=== PATIENT | female | born 2000 | race Caucasian/White ===

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

== ENCOUNTER 2020-07-04 16:38 | Emergency (ER) | payer OTHER, SELFPAY ==
[2020-07-04 16:47] VITALS: BP 115/62; PULSE 74; RESP 18; TEMP 36.8; O2SAT 100; BMI 19.5
[2020-07-04 17:58] LABS: RBC Urine None Seen (0-5/HPF)
[2020-07-04 17:59] LABS: Appearance Urine UA SL CLOUDY; Bilirubin Urine UA NEGATIVE (NEGATIVE); Color Urine UA YELLOW; Glucose Urine UA NEGATIVE (Negative); Ketones Urine UA NEGATIVE (NEGATIVE); Leukocyte Esterase Urine UA 1+ (NEGATIVE); Nitrite Urine UA NEGATIVE (Negative); Occult Blood Urine UA NEGATIVE (Negative); Protein Urine UA NEGATIVE (Negative); Urobilinogen Urine UA 0.2 E.U./dL (0.2)
[2020-07-04 18:09] LABS: Bacteria Urine Moderate (10-30); Culture Indicated Urine Specimen Cultured; Squamous Epithelial Cell Urine 0-1 /HPF (0-5/HPF); WBC Urine 30-100/HPF (0-5/HPF)
--- NOTE | 2020-07-04 18:14 | ED.FEMALEGU ---
HPI - Female Genitourinary General Chief complaint: Urogenital-Female Stated complaint: UTI, Getting Worse Time Seen by Provider: 07/04/20 18:05 Source: patient Mode of arrival: Ambulatory Limitations: no limitations History of Present Illness HPI Narrative: 19-year-old female nonsmoker with extensive history of frequent urinary tract infections presents with a chief complaint of about 1 month's worth of dysuria, frequency and urgency. [place] and put on some white pill as an antibiotic. She states that she did not take it as directed and took it sparingly. She now has subjective fever and complains of some back pain and nausea. She denies any vomiting. She is able to tolerate food and drink without terrible difficulty. She denies any vaginal bleeding or discharge. MD Complaint: dysuria and UTI Onset (ago): day(s) Severity: moderate Quality: Aching Duration: constant Exacerbating factors: urination and movement Urinary symptoms: Dysuria, Frequency and Urgency Patient : No Related Data Previous Rx's Medication Instructions Recorded fluconazole 150 mg PO Q3D #2 tab 10/07/19 ciprofloxacin HCl 500 mg PO BID #14 tab 07/04/20 fluconazole 150 mg PO Q3D #2 tab 07/04/20 Allergies Allergy/AdvReac Type Severity Reaction Status Date / Time chlorhexidine [CHLORHEXIDINE] Allergy Unknown RASH - Verified 07/04/20 16:47 SEVERITY NOT LISTED polyethylene glycol 3350 Allergy Unknown RASH-SEVERITY Verified 07/04/20 16:47 [From MIRALAX] NOT LISTED Sulfa (Sulfonamide Allergy Unknown RASH-SEVERTY Verified 07/04/20 16:47 Antibiotics) NOT LISTED [SULFA (SULFONAMIDE ANTIBIOTICS)] nitrofurantoin Allergy Verified 07/04/20 16:47 [From Macrobid] Review of Systems Constitutional Constitutional: Reports chills, Denies fatigue, Reports fever(s), Denies frequent falls, Denies lethargy and Denies weakness Eyes Eyes: Denies change in vision, Denies eye discharge, Denies irritation and Denies loss of vision ENT Ears, Nose, Mouth, and Throat: Denies change in voice, Denies dizziness, Denies neck pain, Denies sore throat and Denies throat swelling Cardiovascular Cardiovascular: Denies chest pain, Denies irregular heart rhythm, Denies lightheadedness, Denies palpitations, Denies dyspnea, Denies dyspnea on exertion and Denies orthopnea Respiratory Respiratory: Denies cough, Denies dyspnea, Denies dyspnea on exertion and Denies wheezing Gastrointestinal Gastrointestinal: Denies abdominal pain, Denies change in bowel habits, Denies diarrhea, Denies nausea and Denies vomiting Genitourinary Genitourinary: Reports dysuria, Reports dysuria and Reports urinary urgency Genitourinary: Reports dysuria, Reports dysuria and Reports urinary urgency Musculoskeletal Musculoskeletal: Denies neck pain and Denies numbness Integumentary/Breasts Skin/Breast: Denies pruritus, Denies erythema, Denies rash and Denies wounds Neurologic Neurologic: Denies behavioral changes, Denies confusion, Denies dizziness, Denies frequent falls, Denies loss of vision, Denies numbness and Denies weakness Psychiatric Psychiatric: Denies anxiety, Denies behavioral changes, Denies confusion, Denies depression, Denies homicidal ideation and Denies suicidal ideation Endocrine Endocrine: Denies fatigue, Denies flushing and Denies palpitations Hematologic/Lymphatic Hematologic/Lymphatic: Denies easy bruising Allergic/Immunologic Allergic/Immunologic: Denies urticaria, Denies throat swelling and Denies wheezing Patient History Substance Use Type: does not use Exam Narrative Exam Narrative: GENERAL 19 year old patient appears stated age. Well-nourished, well-developed patient, in mild distress. Mother at bedside with her HEAD: Atraumatic. Normocephalic. EYES: Pupils equal round and reactive. Extraocular motions intact. No scleral icterus. No injection or drainage. ENT: Nose without bleeding, purulent drainage. Throat without erythema, tonsillar hypertrophy or exudate. Airway patent. NECK: Trachea midline. Non tender CARDIOVASCULAR: Regular rate and rhythm without murmurs, gallops, or rubs. RESPIRATORY: Clear to auscultation. Breath sounds equal bilaterally. No wheezes, rales, or rhonchi. GASTROINTESTINAL: Abdomen soft, non-tender, nondistended. EXTREMITIES: No edema or joint tenderness. BACK: Nontender without deformity or crepitance. B/L CVA tenderness. NEURO: AOx3. SKIN: No rash or erythema of visible areas Initial Vital Signs Initial Vital Signs: Vital Signs Temperature 98.2 F 07/04/20 16:47 Pulse Rate 74 07/04/20 16:47 Respiratory Rate 18 07/04/20 16:47 Blood Pressure 115/62 07/04/20 16:47 Pulse Oximetry 100 07/04/20 16:47 Course Orders Ordered: ED Orders 07/04/20 17:45 Urinalysis and Microscopic Stat Urine Culture Stat Vital Signs Vital signs: Vital Signs - 8 hr 07/04/20 16:47 07/04/20 18:35 Temperature 98.2 F Pulse Rate 74 73 Respiratory Rate 18 19 Blood Pressure 115/62 105/61 Pulse Oximetry 100 99 MDM - Female Genitourinary Lab Data Labs: Lab Results 07/04/20 Range/Units 17:45 Urine Color Yellow Urine Appearance Sl cloudy Urine pH 7.0 (4.5-8.0) Ur Specific [place] 1.020 (1.000-1.035) Urine Protein Negative (Negative) Urine Glucose (UA) Negative (Negative) g/dL Urine Ketones Negative (NEGATIVE) Urine Occult Blood Negative (Negative) Urine Nitrate Negative (Negative) Urine Bilirubin Negative (NEGATIVE) Urine Urobilinogen 0.2 (0.2) E.U./dL Ur Leukocyte Esterase 1+ H (NEGATIVE) Urine RBC None seen (0-5/HPF) Urine WBC 30-100/hpf H (0-5/HPF) Ur Squamous Epith Cells 0-1 /hpf (0-5/HPF) Urine Bacteria Moderate (10-30) H (None) Ur Culture Indicated? Specimen cultured Point of Care Testing Test Results Negative Discharge Plan Departure Patient Disposition: Home Clinical Impression: Urinary tract infection Qualifiers: Urinary tract infection type: acute pyelonephritis Qualified Code(s): N10 - Acute pyelonephritis Discharge Date/Time: 07/04/20 18:36 Instructions: DI for Kidney Infection Activity Restrictions/Additional Instructions: *You have been diagnosed with [acute kidney infection (pyelonephritis)] *What to do: *Take medications as directed *Follow up with your primary care provider in 2-3 days, call for an appointment. Let them know you were seen in the Emergency Department and that we ask that you be seen in follow up *Return to ER if you should have any new, worsening or concerning symptoms Prescriptions: New fluconazole 150 mg tablet 150 mg PO Q3D Qty: 2 RF: 0 ciprofloxacin HCl 500 mg tablet 500 mg PO BID Qty: 14 RF: 0 No Action fluconazole 150 mg tablet 150 mg PO Q3D Qty: 2 RF: 0
[2020-07-04 18:35] VITALS: BP 105/61; PULSE 73; RESP 19; O2SAT 99
== END 2020-07-04 18:36 | disposition home or self-care (01) ==
PROVIDERS: Emergency Medicine; Emergency Provider Emergency Medicine
DX: N10 Acute pyelonephritis (principal); N39.0 Urinary tract infection, site not specified
CPT/HCPCS: 81001; 81025; 87077; 87086; 87186; 99282

== ENCOUNTER 2020-07-26 17:17 | Emergency (ER) | payer OTHER, SELFPAY ==
[2020-07-26 17:24] VITALS: BP 112/64; PULSE 109; RESP 20; TEMP 36.5; O2SAT 100
--- NOTE | 2020-07-26 17:45 | ED_ITS ---
HPI - Neck Pain/Injury <KARSTEN Mendoza - Last Filed: 07/26/20 18:55> General Chief Complaint: Neck Pain/Injury Stated Complaint: NECK INJURY Time Seen by Provider: 07/26/20 17:20 Source: patient and family Mode of arrival: Ambulatory Limitations: no limitations History of Present Illness HPI Narrative: This is a 20-year-old female, nonsmoker, who has no contributory medical history presents to ED with chief complain of right-sided sharp and burning neck discomfort for 2 days. She reports she woke up with this pain with decreased range of motion due to pain. Patient was seen by chiropractor yesterday and her neck diarrhea adjusted without much improvement. Patient reports had some tingling in her upper extremities the 1st night she had pain but this has resolved. Patient denies trauma or injury associated with this pain. Patient denies headache, vision change, weakness to upper extremities. She denies fever, chills, nausea or vomiting. She has used ice and heat pack on affected site and to occasional ibuprofen for pain. Patient thinks warm pack helps with discomfort. Patient denies similar pain or symptoms in the past. LMP 2 weeks ago which was normal for her. Related Data Previous Rx's Medication Instructions Recorded cyclobenzaprine 10 mg PO BID PRN #10 tab 07/26/20 lidocaine 1 patch TOP Q24H PRN #15 each 07/26/20 Allergies Allergy/AdvReac Type Severity Reaction Status Date / Time chlorhexidine [CHLORHEXIDINE] Allergy Unknown RASH - Verified 07/04/20 16:47 SEVERITY NOT LISTED polyethylene glycol 3350 Allergy Unknown RASH-SEVERITY Verified 07/04/20 16:47 [From MIRALAX] NOT LISTED Sulfa (Sulfonamide Allergy Unknown RASH-SEVERTY Verified 07/04/20 16:47 Antibiotics) NOT LISTED [SULFA (SULFONAMIDE ANTIBIOTICS)] nitrofurantoin Allergy Verified 07/04/20 16:47 [From Macrobid] Review of Systems <KARSTEN Mendoza - Last Filed: 07/26/20 18:55> Review of Systems Narrative: General: Denies fever, chills, fatigue, malaise, sweats. HEENT: Denies sinus pain, ear pain, sore throat, difficulty swallowing, dizziness. Respiratory: Denies dyspnea, cough, wheezing, hemoptysis, sputum. Cardiovascular: Denies chest pain, palpitations, orthopnea, edema. Gastrointestinal: Denies nausea, vomiting, abdominal pain, diarrhea, constipation, melena. : Denies dysuria, frequency, incontinence, hematuria, urinary retention. Musculoskeletal: See HPI Skin: Denies rash, skin lesions, or other. Neurologic: Denies weakness, headache, numbness, change in speech, confusion, seizures, incoordination. Psychiatric: No concerning psychosocial issues. 12-point review of systems is negative except for those stated above. Patient History <KARSTEN Mendoza - Last Filed: 07/26/20 18:55> Medical History No significant past medical history (Acute) Surgical History No pertinent past surgical history (Acute) Social History marital status: unmarried,single housing: house Smoking Status: Never smoker Smoking Status: Never smoker Substance Use Type: does not use Exam <KARSTEN Mendoza - Last Filed: 07/26/20 18:55> Narrative Exam Narrative: General appearance: well developed, well nourished, in no acute distress. Head: normocephalic, atraumatic, no scalp lesions, non-tender. ENT: Hearing grossly intact. Airway patent. Neck/Thyroid: neck supple, limited range of motion with rotation, flexion and extension of cervical spine. no visible masses or meningeal signs. No JVD, non- tender without lymphadenopathy. Skin: no suspicious rashes, lesions over visible areas on affected neck. Warm and dry and appropriate color for ethnicity. Heart: no clubbing, no cyanosis, no edema. Lungs: Breathing even and unlabored. No stridor. No accessory muscles used. Able to speak in full sentences. Chest: normal shape and expansion. Abdomen: non-obese, non-distended. Neurologic: alert and oriented. Cognitive exam, [employer] and PNS grossly intact on informal exam. Psych: good eye contact, normal affect. Initial Vital Signs Initial Vital Signs: Vital Signs Temperature 97.7 F 07/26/20 17:24 Pulse Rate 109 H 07/26/20 17:24 Respiratory Rate 20 07/26/20 17:24 Blood Pressure 112/64 07/26/20 17:24 Pulse Oximetry 100 07/26/20 17:24 Back/Spine/Pelvis Cervical Spine: normal cervical lordosis, cervical muscular tenderness (Right- sided), pain with cervical ROM, No scars present, No cervical spinal tenderness, No step off deformity and cervical ROM abnormal (In all range of motion with rotation >45 degree, flexion/extension) <Asa Freier DO - Last Filed: 07/26/20 18:55> Initial Vital Signs Initial Vital Signs: Vital Signs Temperature 97.7 F 07/26/20 17:24 Pulse Rate 109 H 07/26/20 17:24 Respiratory Rate 20 07/26/20 17:24 Blood Pressure 112/64 07/26/20 17:24 Pulse Oximetry 100 07/26/20 17:24 Scores <KARSTEN Mendoza - Last Filed: 07/26/20 18:55> GCS Estephania coma scale eye opening: Spontaneous Estephania coma scale verbal response: Orientated Estephania coma scale motor response: Obey commands Estephania coma scale total score: 15 Course <KARSTEN Mendoza - Last Filed: 07/26/20 18:55> Orders Ordered: Discontinued Medications Acetaminophen (Tylenol) 650 mg PO NOW ONE Stop: 07/26/20 17:32 Last Admin: 07/26/20 17:49 Dose: 650 mg Documented by: BETZY Cyclobenzaprine HCl (Flexeril) 10 mg PO NOW ONE Stop: 07/26/20 17:32 Last Admin: 07/26/20 17:48 Dose: 10 mg Documented by: BETZY Ibuprofen (Advil) 400 mg PO NOW ONE Stop: 07/26/20 17:32 Last Admin: 07/26/20 17:48 Dose: 400 mg Documented by: BETZY Lidocaine (Lidoderm) 1 each TOP NOW ONE Stop: 07/26/20 17:32 Last Admin: 07/26/20 17:47 Dose: 1 each Documented by: BETZY Reevaluation(s) Reevaluation #1: Patient reports discomfort still about the same after she received all for medications in ED. Time: 18:25 Vital Signs Vital signs: Vital Signs - 8 hr 07/26/20 17:24 07/26/20 18:37 Temperature 97.7 F Pulse Rate 109 H 77 Respiratory Rate 20 16 Blood Pressure 112/64 101/53 L Pulse Oximetry 100 99 <Asa Freire DO - Last Filed: 07/26/20 18:55> Orders Ordered: Discontinued Medications Acetaminophen (Tylenol) 650 mg PO NOW ONE Stop: 07/26/20 17:32 Last Admin: 07/26/20 17:49 Dose: 650 mg Documented by: BETZY Cyclobenzaprine HCl (Flexeril) 10 mg PO NOW ONE Stop: 07/26/20 17:32 Last Admin: 07/26/20 17:48 Dose: 10 mg Documented by: BETZY Ibuprofen (Advil) 400 mg PO NOW ONE Stop: 07/26/20 17:32 Last Admin: 07/26/20 17:48 Dose: 400 mg Documented by: BETZY Lidocaine (Lidoderm) 1 each TOP NOW ONE Stop: 07/26/20 17:32 Last Admin: 07/26/20 17:47 Dose: 1 each Documented by: BETZY Vital Signs Vital signs: Vital Signs - 8 hr 07/26/20 17:24 07/26/20 18:37 Temperature 97.7 F Pulse Rate 109 H 77 Respiratory Rate 20 16 Blood Pressure 112/64 101/53 L Pulse Oximetry 100 99 [facility] - Neck Pain/Injury <KARSTEN Mendoza - Last Filed: 07/26/20 18:55> Differential Diagnosis Differential diagnosis: Likely cervical radiculopathy, torticollis, strain of neck muscle and other (Shingles) Medical Records Attestation: I reviewed the patient's medical records. 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 Patient reports limited range of motion due to discomfort. Patient had temporarily tinglng on bilateral upper extremities which resolved the other night. Patient has intact sensation, pulses and strength bilaterally. No rashes, mass or lesions appreciated on the affected site of neck. Pain radiates to right side upper back with movements. No focal neurological deficit appreciated. Imaging test was done since this is nontraumatic discomfort and given patient's age. Patient was medicated with Tyelnol, Ibuprofen, Flexeril and Lidocaine patch with minimal improvement. The patient recommended the same regimen, follow-up with primary care physician there is no improvement. Return precautions were discussed with patient and work note provided 2 days. Patient and mother verbalized understanding and agreement with treatment plan. Discharge Plan Departure Patient Disposition: Home Clinical Impression: Cervicalgia Discharge Date/Time: 07/26/20 18:46 Instructions: DI for Neck Pain Activity Restrictions/Additional Instructions: You have been diagnosed with [right-sided neck pain with limited range of m otion.]. What to do: *Take your medications as directed. Please take [id number] Tylenol and or Motrin as needed for discomfort. Tylenol 650 up to 3 to 4 times a day as needed for pain. Ibuprofen 400-600 mg up to 3 to 4 times a day as needed for pain with food to decrease GI irritation. Lidocaine patch on affected area which stays on for 12 hours and off for 12 hours use it for pain as needed. Flexeril is muscle relaxant, you can use it as needed. This can cause drowsiness, please take precautions not to drive, drink alcohol, or operate heavy equipments. This medication have been transmitted to [facility] in [place]. *Follow up with your primary care provider in 2-3 days, call for an appointment. Let them know you were seen in the ED and that we asked you to be seen in [facility] [place]. *Return to ED if you have any new, worsening, or concerning symptoms, such as [worsening pain, weakness/tingling/numbness on extremities, rash on the neck, fever, chest pain, breathing difficulty, or any acute concerns]. Prescriptions: New cyclobenzaprine 10 mg tablet 10 mg PO BID PRN (Reason: muscle spasm) Qty: 10 RF: 0 lidocaine 5 % adhesive patch,medicated 1 patch TOP Q24H PRN (Reason: pain) Qty: 15 RF: 0 Referrals: [facility] [Outside] Stand Alone Forms: Work Release Note <Asa Freire, DO - Last Filed: 07/26/20 18:55> Cosign ED Attending Cosabbieature Attestation: Dr Freire Co-Sign Statement: I was available for consultation during this patient's emergency department visit. This chart is signed by myself for administrative purposes only. I did not have direct contact with this patient during this visit. They were seen independently by the APC.
[2020-07-26] MEDS: LIDOCAINE PATCH 1 EACH ADH..PATCH TOP (17:47)
[2020-07-26] MEDS: IBUPROFEN 400 MG TABLET PO (17:48)
[2020-07-26] MEDS: CYCLOBENZAPRINE 10 MG TABLET PO (17:48)
[2020-07-26] MEDS: ACETAMINOPHEN 325 MG TABLET 650 MG PO (17:49)
[2020-07-26 18:37] VITALS: BP 101/53; PULSE 77; RESP 16; O2SAT 99
== END 2020-07-26 18:46 | disposition home or self-care (01) ==
PROVIDERS: Emergency Provider Nurse Practitioner Family
DX: M54.2 Cervicalgia (principal)
CPT/HCPCS: 99283

== ENCOUNTER 2021-10-23 11:29 | Emergency (ER) | payer OTHER, SELFPAY ==
[2021-10-23 11:35] VITALS: BP 115/63; PULSE 94; RESP 13; TEMP 36.6; O2SAT 100; BMI 19.5
[2021-10-23 12:21] LABS: Bacteria Urine Many (>30); RBC Urine 0-1/HPF (0-5/HPF); Squamous Epithelial Cell Urine 1-5 /HPF (0-5/HPF); WBC Urine 30-100/HPF (0-5/HPF)
[2021-10-23 12:22] LABS: Culture Indicated Urine Specimen Cultured
[2021-10-23 12:40] VITALS: BP 123/68; PULSE 90; RESP 18; TEMP 36.7; O2SAT 100
--- NOTE | 2021-10-23 12:46 | ED.FEMALEGU ---
HPI - Female Genitourinary <FREDY Nix - Last Filed: 10/23/21 15:27> General Chief complaint: Urogenital-Female Stated complaint: UTI, Swollen lymphnode Time Seen by Provider: 10/23/21 12:37 Source: patient Mode of arrival: Ambulatory History of Present Illness HPI Narrative: The patient is a 21-year-old female nonsmoker with history of remote urinary tract infection who presents with a chief complaint of UTI symptoms since yesterday. She is allergic to sulfa antibiotics, states she gets itchy with Macrobid as well. She notes dysuria urgency and frequency as well as urinary odor starting yesterday. Denies any abnormal vaginal discharge. She denies any flank pain vomiting, diarrhea, nausea or concern about sexually transmitted infections. She also notes that she has 1 single early swollen lymph node on her neck that is being worked up, at an outside facility. She has imaging scheduled upcoming through [facility]. Related Data Previous Rx's Medication Instructions Recorded cyclobenzaprine 10 mg tablet 10 mg PO BID PRN #10 tab 07/26/20 lidocaine 5 % topical patch 1 patch TOP Q24H PRN #15 each 07/26/20 cephalexin 500 mg capsule 500 mg PO BID #14 cap 10/23/21 fluconazole 150 mg tablet 150 mg PO Q3D #2 tab 10/23/21 (Diflucan) Allergies Allergy/AdvReac Type Severity Reaction Status Date / Time chlorhexidine [CHLORHEXIDINE] Allergy Unknown RASH - Verified 10/23/21 11:38 SEVERITY NOT LISTED polyethylene glycol 3350 Allergy Unknown RASH-SEVERITY Verified 10/23/21 11:38 [From MIRALAX] NOT LISTED Sulfa (Sulfonamide Allergy Unknown RASH-SEVERTY Verified 10/23/21 11:38 Antibiotics) NOT LISTED [SULFA (SULFONAMIDE ANTIBIOTICS)] nitrofurantoin Allergy Verified 10/23/21 11:38 [From Macrobid] Review of Systems <FREDY Nix - Last Filed: 10/23/21 15:27> Review of Systems Narrative: GENERAL: Denies chills, fatigue, malaise, fever, sweats. HEENT: See HPI RESPIRATORY: Denies dyspnea, cough, wheezing, hemoptysis, sputum. CARDIOVASCULAR: Denies chest pain, palpitations, orthopnea, edema, GASTROINTESTINAL: Denies nausea, vomiting, abdominal pain, diarrhea, constipation, melena. : See HPI MUSCULOSKELETAL: denies weakness, joint pain, or bony pain SKIN: Denies rash, skin lesions, or other NEUROLOGIC: Denies weakness, headache, numbness, change in speech, confusion, seizures, incoordination. PSYCHIATRIC: No concerning psychosocial issues. 12 point review of systems is negative except for those stated above Patient History <FREDY Nix - Last Filed: 10/23/21 15:27> Medical History (Updated 10/23/21 @ 12:51 by FREDY Nix) No significant past medical history Surgical History No pertinent past surgical history alcohol intake frequency: holidays/special occasions only Substance Use Type: does not use Exam <FREDY Nix - Last Filed: 10/23/21 15:27> Narrative Exam Narrative: GENERAL: This is a well-nourished, well-developed patient, in no acute distress HEAD: Atraumatic. Normocephalic. No temporal or scalp tenderness. EYES: Pupils equal round and reactive. Extraocular motions intact. No scleral icterus. No injection or drainage. ENT: Nose without bleeding, purulent drainage or septal hematoma. Throat without erythema, tonsillar hypertrophy or exudate. Uvula midline. Airway patent. Bilateral TMs pearly marie. single slightly painful submandibular lymph node on left side, not larger than right, no overlying erythema. NECK: Trachea midline. No JVD or lymphadenopathy. Supple, nontender, no meningeal signs. CARDIOVASCULAR: Regular rate and rhythm RESPIRATORY: Clear to auscultation. Breath sounds equal bilaterally. No wheezes, rales, or rhonchi. GASTROINTESTINAL: Abdomen soft, non-tender, nondistended. No hepato-splenomegaly, or palpable masses. No guarding. EXTREMITIES: No clubbing, cyanosis, or edema. No joint tenderness, effusion, or edema noted. BACK: Nontender without deformity or crepitance. No CVA tenderness NEURO: AOx3. SKIN: No rash or erythema. Initial Vital Signs Initial Vital Signs: Vital Signs Temperature 97.8 F 10/23/21 11:35 Pulse Rate 94 H 10/23/21 11:35 Respiratory Rate 13 10/23/21 11:35 Blood Pressure 115/63 10/23/21 11:35 Pulse Oximetry 100 10/23/21 11:35 <Wilson Suggs MD - Last Filed: 10/29/21 12:16> Initial Vital Signs Initial Vital Signs: Vital Signs Temperature 97.8 F 10/23/21 11:35 Pulse Rate 94 H 10/23/21 11:35 Respiratory Rate 13 10/23/21 11:35 Blood Pressure 115/63 10/23/21 11:35 Pulse Oximetry 100 10/23/21 11:35 Course <FREDY Nix - Last Filed: 10/23/21 15:27> Orders Ordered: ED Orders 10/23/21 11:52 Urine Culture Stat Urine Microscopic Stat Vital Signs Vital signs: Vital Signs - 8 hr 10/23/21 11:35 10/23/21 12:40 Temperature 97.8 F 98.1 F Pulse Rate 94 H 90 Respiratory Rate 13 18 Blood Pressure 115/63 123/68 Pulse Oximetry 100 100 <Wilson Suggs MD - Last Filed: 10/29/21 12:16> Orders Ordered: ED Orders 10/23/21 11:52 Urine Culture Stat Urine Microscopic Stat Vital Signs Vital signs: Vital Signs - 8 hr 10/23/21 11:35 10/23/21 12:40 Temperature 97.8 F 98.1 F Pulse Rate 94 H 90 Respiratory Rate 13 18 Blood Pressure 115/63 123/68 Pulse Oximetry 100 100 MDM - Female Genitourinary <FREDY Nix - Last Filed: 10/23/21 15:27> Lab Data Labs: Lab Results 10/23/21 Range/Units 11:52 Urine RBC 0-1/hpf (0-5/HPF) Urine WBC 30-100/hpf H (0-5/HPF) Ur Squamous Epith Cells 1-5 /hpf (0-5/HPF) Urine Bacteria Many (>30) H (None) Ur Culture Indicated? Specimen cultured Point of Care Testing Test Results Negative Urine Dip Bedside Urine Glucose Negative Bedside Urine Bilirubin - Negative Bedside Urine Ketone - Negative Urine Specific [place] 1.030 Bedside Urine Occult Blood ++ Bedside Urine pH 6.0 Bedside Urine Protein + 30 Bedside Urine Urobilinogen - Negative Bedside Urine Nitrite + Positive Bedside Urine Leukocytes + 70 Esterase MDM Narrative Medical decision making narrative: The patient is a 21-year-old female who presents with dysuria urgency and frequency that started yesterday. Urine is concerning for UTI, with nitrate positive urine. However she does not have any signs of pyelonephritis, denies any flank pain, fever, appears well and nontoxic. She is allergic to Macrobid and to sulfa continue antibiotics, so will start her on Keflex at this point time. Discussed at length strict ER return precautions, urine culture is pending at this point time. She does have a slightly painful lymph node, that is isolated, however does being worked up at an outside facility and she already has imaging scheduled. I discussed that treating her UTI could possibly help this, encouraged [id number] medications as needed and able. Gave patient phone number to help establish primary care provider. Patient has no questions or concerns upon discharge states understanding return precautions as well as follow-up care. She has appeared well and nontoxic throughout her stay in the ER. <Wilson Suggs MD - Last Filed: 10/29/21 12:16> Lab Data Labs: Lab Results 10/23/21 Range/Units 11:52 Urine RBC 0-1/hpf (0-5/HPF) Urine WBC 30-100/hpf H (0-5/HPF) Ur Squamous Epith Cells 1-5 /hpf (0-5/HPF) Urine Bacteria Many (>30) H (None) Ur Culture Indicated? Specimen cultured Point of Care Testing Test Results Negative Urine Dip Bedside Urine Glucose Negative Bedside Urine Bilirubin - Negative Bedside Urine Ketone - Negative Urine Specific [place] 1.030 Bedside Urine Occult Blood ++ Bedside Urine pH 6.0 Bedside Urine Protein + 30 Bedside Urine Urobilinogen - Negative Bedside Urine Nitrite + Positive Bedside Urine Leukocytes + 70 Esterase Discharge Plan Departure Patient Disposition: Home Clinical Impression: Urinary tract infection, Lymphadenopathy Instructions: DI for Urinary Tract Infection (UTI) Activity Restrictions/Additional Instructions: Thank you for trusting us with your care today. As discussed, you have evidence of urinary tract infection. I sent a prescription of an antibiotic and for you, as well as a prescription for Diflucan in case you develop any infections. Please take this antibiotic with probiotic to help prevent antibiotic related diarrhea etcetera. As discussed, we are doing a urine culture to assure that this antibiotic will take care of your infection. You can also call [phone] to help establish a primary care provider. As discussed, please keep your follow-up as scheduled regarding her swollen lymph node including her imaging at [facility]. In the meantime please use [id number] medications as needed and able hopefully treating your infection will also help. Please come back to the emergency department for any acute concerns such as inability keep down fluids, etcetera Prescriptions: New cephalexin 500 mg capsule 500 mg PO BID Qty: 14 0RF fluconazole [Diflucan] 150 mg tablet 150 mg PO Q3D Qty: 2 0RF Rx Instructions: may repeat second dose 72 hrs after first dose if symptoms persist No Action cyclobenzaprine 10 mg tablet 10 mg PO BID PRN (Reason: muscle spasm) Qty: 10 0RF lidocaine 5 % adhesive patch,medicated 1 patch TOP Q24H PRN (Reason: pain) Qty: 15 0RF Rx Instructions: leave on most painful area for up to 12 hrs <Wilson Suggs MD - Last Filed: 10/29/21 12:16> Cosign ED Attending Cosignature Attestation: I was immediately available in the department for consultation. This documentation has been reviewed and I agree with assessment and plan. Supervised by Wilson Suggs MD
== END 2021-10-23 13:15 | disposition home or self-care (01) ==
PROVIDERS: Emergency Medicine; Emergency Provider Nurse Practitioner Family
DX: N39.0 Urinary tract infection, site not specified (principal); R59.1 Generalized enlarged lymph nodes
CPT/HCPCS: 81003; 81015; 81025; 87077; 87086; 87186; 99282

== ENCOUNTER 2022-10-22 10:02 | Emergency (ER) | payer OTHER, SELFPAY ==
[2022-10-22 10:41] VITALS: BP 130/68; PULSE 82; RESP 15; TEMP 36.4; O2SAT 100; BMI 19.5
--- NOTE | 2022-10-22 12:35 | ED.BACK ---
HPI - Back Pain/Injury <Trena Cameron PA-C - Last Filed: 10/22/22 12:59> General Chief Complaint: Back Pain/Injury Stated Complaint: back injury at work yesterday Time Seen by Provider: 10/22/22 12:18 Source: patient History of Present Illness HPI Narrative: 22-year-old female with no reported past medical history presents to the ED with 2 days of lower back pain. Patient states that she was lifting some heavy objects at work yesterday, following which she believes she pulled a muscle in the back causing lower back pain. Patient states that the pain does not travel down her legs. Patient denies tingling, weakness. Patient endorses mild intermittent numbness in bilateral feet. Patient endorses that she still has feeling in her feet. Patient is able to bear weight and walk normally. Patient denies urinary difficulties including dysuria, urinary hesitancy, urinary incontinence. Patient denies bowel incontinence. Patient denies saddle paresthesias. Patient denies fever, chills, chest pain, shortness of breath, abdominal pain, nausea, vomiting, lightheadedness, dizziness, syncope. Patient took some ibuprofen yesterday with minimal relief. Related Data Previous Rx's Medication Instructions Recorded cyclobenzaprine 10 mg tablet 10 mg PO BID PRN muscle spasm #10 07/26/20 tabs lidocaine 5 % topical patch 1 patch topical Q24H PRN pain #15 07/26/20 ea cephalexin 500 mg capsule 500 mg PO BID #14 caps 10/23/21 fluconazole 150 mg tablet 150 mg PO Q3D 2 doses #2 tabs 10/23/21 (Diflucan) cyclobenzaprine 10 mg tablet 10 mg PO TID PRN muscle spasm #20 10/22/22 tabs Allergies Allergy/AdvReac Type Severity Reaction Status Date / Time chlorhexidine [CHLORHEXIDINE] Allergy Unknown RASH - Verified 10/22/22 10:41 SEVERITY NOT LISTED polyethylene glycol 3350 Allergy Unknown RASH-SEVERITY Verified 10/22/22 10:41 [From MIRALAX] NOT LISTED Sulfa (Sulfonamide Allergy Unknown RASH-SEVERTY Verified 10/22/22 10:41 Antibiotics) NOT LISTED [SULFA (SULFONAMIDE ANTIBIOTICS)] nitrofurantoin Allergy Verified 10/22/22 10:41 [From Macrobid] Review of Systems <Trena Cameron PA-C - Last Filed: 10/22/22 12:59> Review of Systems ROS Unobtainable: All systems reviewed & are unremarkable except as noted in HPI and below Constitutional Constitutional: Denies chills, Denies fatigue, Denies fever(s), Denies frequent falls, Denies lethargy and Denies weakness Eyes Eyes: Denies change in vision, Denies eye discharge, Denies irritation and Denies loss of vision ENT Ears, Nose, Mouth, and Throat: Denies change in voice, Denies dizziness, Denies neck pain, Denies sore throat and Denies throat swelling Cardiovascular Cardiovascular: Denies chest pain, Denies irregular heart rhythm, Denies lightheadedness, Denies palpitations, Denies dyspnea, Denies dyspnea on exertion and Denies orthopnea Respiratory Respiratory: Denies cough, Denies dyspnea, Denies dyspnea on exertion and Denies wheezing Gastrointestinal Gastrointestinal: Denies abdominal pain, Denies change in bowel habits, Denies diarrhea, Denies nausea and Denies vomiting Genitourinary Genitourinary: Denies hematuria, Denies flank pain, Denies urinary incontinence and Denies urinary urgency Musculoskeletal Musculoskeletal: Reports back pain, Denies muscle weakness, Denies neck pain, Denies numbness and Denies tingling Integumentary/Breasts Skin/Breast: Denies pruritus, Denies erythema, Denies rash and Denies wounds Neurologic Neurologic: Denies behavioral changes, Denies confusion, Denies dizziness, Denies frequent falls, Denies loss of vision, Denies numbness, Denies tingling and Denies weakness Psychiatric Psychiatric: Denies anxiety, Denies behavioral changes, Denies confusion, Denies depression, Denies homicidal ideation and Denies suicidal ideation Endocrine Endocrine: Denies fatigue, Denies flushing and Denies palpitations Hematologic/Lymphatic Hematologic/Lymphatic: Denies easy bruising Allergic/Immunologic Allergic/Immunologic: Denies urticaria, Denies throat swelling and Denies wheezing Patient History <Trena Cameron PA-C - Last Filed: 10/22/22 12:59> Medical History (Updated 10/22/22 @ 12:48 by Trena Cameron PA-C) No significant past medical history Surgical History No pertinent past surgical history Social History marital status: unmarried,single housing: house Smoking Status: Never smoker Smoking Status: Never smoker alcohol intake frequency: holidays/special occasions only Substance Use Type: does not use Exam <Trena Cameron PA-C - Last Filed: 10/22/22 12:59> Narrative Exam Narrative: Const General:?cooperative, healthy appearing and comfortable HENMT Head:?normal to inspection Ears:?hearing grossly normal bilaterally Nose:?external nose normal Face and sinus:?normal facial exam and sinuses nontender Mouth:?oral mucosae normal Throat:?posterior oropharynx normal Eyes General:?appearance normal, both eyes and all related structures Neck Neck:?normal visual inspection and no lymphadenopathy noted Resp Effort & Inspection:?normal respiratory effort Auscultation:?clear to auscultation bilaterally Cardio Rate:?regular rate Rhythm:?regular rhythm Musculoskeletal No midline tenderness to palpation. There is some paraspinal tenderness to palpation in the lumbar region. Full range of motion. Strength and sensation intact. Patient is neurovascularly intact. Neuro General:?patient alert, patient awake and patient oriented x3 Initial Vital Signs Initial Vital Signs: Vital Signs Temperature 97.5 F L 10/22/22 10:41 Pulse Rate 82 10/22/22 10:41 Respiratory Rate 15 10/22/22 10:41 Blood Pressure 130/68 10/22/22 10:41 Pulse Oximetry 100 10/22/22 10:41 Oxygen Delivery Method 10/22/22 10:41 <David Adams MD - Last Filed: 10/30/22 21:49> Initial Vital Signs Initial Vital Signs: Vital Signs Temperature 97.5 F L 10/22/22 10:41 Pulse Rate 82 10/22/22 10:41 Respiratory Rate 15 10/22/22 10:41 Blood Pressure 130/68 10/22/22 10:41 Pulse Oximetry 100 10/22/22 10:41 Oxygen Delivery Method 10/22/22 10:41 Course <Trena Cameron PA-C - Last Filed: 10/22/22 12:59> Orders Ordered: Discontinued Medications Cyclobenzaprine HCl (Cyclobenzaprine 10 Mg Tablet) 10 mg PO NOW ONE Stop: 10/22/22 12:44 Last Admin: 10/22/22 12:54 Dose: 10 mg Documented By: LAYO Ketorolac Tromethamine (Ketorolac 30 Mg/Ml Vial) 30 mg IM NOW ONE Stop: 10/22/22 12:44 Last Admin: 10/22/22 12:54 Dose: 30 mg Documented By: LAYO Lidocaine (Lidocaine Patch 1 Each Adh..Patch) 1 each TOP NOW ONE Stop: 10/22/22 12:44 Last Admin: 10/22/22 12:54 Dose: 1 each Documented By: CTS Vital Signs Vital signs: Vital Signs - 8 hr 10/22/22 10:41 Temperature 97.5 F L Pulse Rate 82 Respiratory Rate 15 Blood Pressure 130/68 Pulse Oximetry 100 Oxygen Delivery Method Room Air <David Adams MD - Last Filed: 10/30/22 21:49> Orders Ordered: Discontinued Medications Cyclobenzaprine HCl (Cyclobenzaprine 10 Mg Tablet) 10 mg PO NOW ONE Stop: 10/22/22 12:44 Last Admin: 10/22/22 12:54 Dose: 10 mg Documented By: LAYO Ketorolac Tromethamine (Ketorolac 30 Mg/Ml Vial) 30 mg IM NOW ONE Stop: 10/22/22 12:44 Last Admin: 10/22/22 12:54 Dose: 30 mg Documented By: LAYO Lidocaine (Lidocaine Patch 1 Each Adh..Patch) 1 each TOP NOW ONE Stop: 10/22/22 12:44 Last Admin: 10/22/22 12:54 Dose: 1 each Documented By: CTS Vital Signs Vital signs: Vital Signs - 8 hr 10/22/22 10:41 Temperature 97.5 F L Pulse Rate 82 Respiratory Rate 15 Blood Pressure 130/68 Pulse Oximetry 100 Oxygen Delivery Method Room Air MDM - Back Pain/Injury <Trena Cameron PA-C - Last Filed: 10/22/22 12:59> Lab Data Labs: Point of Care Testing Test Results Negative Urine Dip Bedside Urine Glucose Negative Bedside Urine Bilirubin - Negative Bedside Urine Ketone - Negative Urine Specific [place] 1.015 Bedside Urine Occult Blood - Negative Bedside Urine pH 6.0 Bedside Urine Protein - Negative Bedside Urine Urobilinogen - Negative Bedside Urine Nitrite - Negative Bedside Urine Leukocytes - Negative Esterase MDM Narrative Medical decision making narrative: 22-year-old female with no reported past medical history presents to the ED with 2 days of lower back pain. Concern for musculoskeletal sprain/strain. Unlikely fracture/dislocation or spinal emergency, given physical exam and history. There is no midline tenderness to palpation, patient is neurovascularly intact, denies saddle paresthesias, has no urinary hesitancy. No imaging indicated at this time. Will treat as a musculoskeletal sprain/strain with Toradol, lidocaine patch, Flexeril. ED return precautions were discussed with patient. Patient verbalized understanding. Recommend PCP follow-up in 3 days. Corroborating data:none Data collected from:?patient ? Medical records reviewed:??yes ? Differential considered:??as above ? Exam documented above, pertinent findings include:?as above ? Lab Test results independently reviewed as above. Pertinent findings:n/a ? Independently reviewed EKG as above: n/a ? Imaging studies independently reviewed:n/a ? Consultations:n/a ? Treatments:as above ? ? Discussion:as above ? Diagnosis: Musculoskeletal sprain/strain ? Disposition: see below, along with detailed discharge instructions that have been reviewed with patient as well as indications for ED re-evaluation and additional outpatient follow up <David Adams MD - Last Filed: 10/30/22 21:49> Lab Data Labs: Point of Care Testing Test Results Negative Urine Dip Bedside Urine Glucose Negative Bedside Urine Bilirubin - Negative Bedside Urine Ketone - Negative Urine Specific [place] 1.015 Bedside Urine Occult Blood - Negative Bedside Urine pH 6.0 Bedside Urine Protein - Negative Bedside Urine Urobilinogen - Negative Bedside Urine Nitrite - Negative Bedside Urine Leukocytes - Negative Esterase Discharge Plan Departure Patient Disposition: Home Clinical Impression: Acute back pain Instructions: DI for Low Back Pain Activity Restrictions/Additional Instructions: You were evaluated in the ED today for lower back pain. Your symptoms are likely due to a musculoskeletal sprain/strain from lifting heavy items. Your physical exam is reassuring, you have good range of motion and your strength and sensation is intact. You may take ibuprofen 800 mg 3 times a day for the pain. You may also take Flexeril, which is a muscle relaxant. You may apply lidocaine patches, brand name Salonpas. Return to the ED if your symptoms worsen, you experience numbness, tingling, weakness, you have trouble urinating or you experience bladder or bowel incontinence. Please follow-up with your PCP in 3 days. Prescriptions: New cyclobenzaprine 10 mg tablet 10 mg PO TID PRN (Reason: muscle spasm) Qty: 20 0RF No Action cyclobenzaprine 10 mg tablet 10 mg PO BID PRN (Reason: muscle spasm) Qty: 10 0RF lidocaine 5 % adhesive patch,medicated 1 patch TOP Q24H PRN (Reason: pain) Qty: 15 0RF Rx Instructions: leave on most painful area for up to 12 hrs cephalexin 500 mg capsule 500 mg PO BID Qty: 14 0RF fluconazole [Diflucan] 150 mg tablet 150 mg PO Q3D Qty: 2 0RF Rx Instructions: may repeat second dose 72 hrs after first dose if symptoms persist Stand Alone Forms: Patient Portal/API, Work Release Note <David Adams MD - Last Filed: 10/30/22 21:49> Cosign ED Attending Cosignature Attestation: I was immediately available in the department for consultation. Documentation has been reviewed. I agree with assessment and plan.
[2022-10-22] MEDS: CYCLOBENZAPRINE 10 MG TABLET PO (12:54)
[2022-10-22] MEDS: LIDOCAINE PATCH 1 EACH ADH..PATCH TOP (12:54)
[2022-10-22] MEDS: KETOROLAC 30 MG/ML VIAL IM (12:54)
== END 2022-10-22 13:08 | disposition home or self-care (01) ==
PROVIDERS: Emergency Provider Student in an Organized Health Care Education/Training Program
DX: M54.50 Low back pain, unspecified (principal); X50.0XXA Overexertion from strenuous movement or load, initial encounter; Y99.0 Civilian activity done for income or pay
CPT/HCPCS: 81003; 81025; 96372; 99283; 99284; J1885